=== PATIENT | male | born 1970 | race Two or more races ===

== ENCOUNTER 2016-08-05 07:45 | Inpatient (IN) | payer OTHER ==
[~2016-08-05] VITALS: Ht 167.6 cm; Wt 95.6 kg
[~2016-08-05 07:45] MED LIST: BACITRACIN 50,000 UNIT ONE; BUPIVACAINE/PF-EPI 0.5% 1:200K ONE; THROMBIN 20,000 UNIT VIAL TP ONE
[2016-08-05 08:44] VITALS: BP 145/95
[2016-08-05] MEDS ORDERED: LACTATED RINGERS 1,000 ML IV SCH (08:56)
[2016-08-05] MEDS ORDERED: FENTANYL PF 250 MCG/5ML ONE (09:20)
[2016-08-05] MEDS ORDERED: MIDAZOLAM 1 MG/ML, 2ML ONE (09:20)
[2016-08-05] MEDS ORDERED: ONDANSETRON 2MG/ML, 2ML ONE (10:24)
[2016-08-05] MEDS ORDERED: DEXAMETHASONE 4 MG/ML, 1ML ONE (10:24)
[2016-08-05] MEDS ORDERED: CEFAZOLIN 1,000 MG ONE (10:24)
[2016-08-05] MEDS ORDERED: PROPOFOL 10 MG/ML, 50ML ONE (10:24)
[2016-08-05] MEDS ORDERED: SUCCINYLCHOLINE 20 MG/ML, 10ML ONE (10:24)
[2016-08-05] MEDS ORDERED: PROPOFOL 10 MG/ML, 20ML ONE (10:24)
[2016-08-05] MEDS ORDERED: HYDROmorphone 1 MG/ML, 1ML IV PRN (11:00)
[2016-08-05] MEDS ORDERED: LABETALOL 5MG/ML, 20ML IV PRN (11:00)
[2016-08-05] MEDS ORDERED: ONDANSETRON 2MG/ML, 2ML IVPush PRN (11:00)
[2016-08-05] MEDS ORDERED: ALBUTEROL/IPRATROPIUM 2.5MG/0.5MG, 3 ML NPPB PRN (11:00)
[2016-08-05] MEDS ORDERED: PROMETHAZINE 25 MG/ML, 1ML IV PRN (11:00)
[2016-08-05] MEDS ORDERED: ACETAMINOPHEN 325 MG TABLET PO PRN (11:00)
[2016-08-05] MEDS ORDERED: MIDAZOLAM 1 MG/ML, 2ML IV PRN (11:00)
[2016-08-05] MEDS ORDERED: FENTANYL PF 100 MCG/2ML IV PRN (11:00)
[2016-08-05] MEDS ORDERED: MEPERIDINE/PF 25MG/0.5ML IVPush PRN (11:00)
[2016-08-05] MEDS ORDERED: hydrALAzine 20 MG/ML, 1ML IV PRN (11:00)
[2016-08-05] MEDS ORDERED: OXYcodone 5 MG/5 ML ORAL.SOL UDC PO PRN (11:00)
[2016-08-05] MEDS ORDERED: HYDROmorphone 1 MG/ML, 1ML ONE ×2 (11:38→12:28)
[2016-08-05] MEDS ORDERED: OXYcodone 5 MG/5 ML ORAL.SOL UDC ONE (12:16)
[2016-08-05] MEDS ORDERED: ACETAMINOPHEN 650 MG/20.3 ML UDC ONE (12:16)
[2016-08-05] MEDS ORDERED: morphine SULFATE 10 MG/ML, 1ML IV PRN (15:00)
[2016-08-05] MEDS ORDERED: METHOCARBAMOL 1,000 MG in DEXTROSE 5% 100 ML IV ONE (15:00)
[2016-08-05] MEDS ORDERED: NS + 20MEQ KCL 1,000 ML IV SCH (15:00)
[2016-08-05] MEDS ORDERED: MAGNESIUM HYDROXIDE 8%, 30ML UDC PO PRN (15:00)
[2016-08-05] MEDS: ONDANSETRON 2MG/ML, 2ML IV PRN (15:37)
[2016-08-05] MEDS: DEXAMETHASONE 4 MG/ML, 1ML IV SCH ×3 (17:05→23:22)
[2016-08-05] MEDS: GABAPENTIN 300 MG CAPSULE PO SCH ×2 (17:05→20:30)
[2016-08-05] MEDS: CEFAZOLIN PMX 1GM/50ML 50 ML IVPB SCH (18:27)
[2016-08-05 18:32] VITALS: BP 128/62
[2016-08-05] MEDS: OXYcodone/APAP 5/325MG TABLET PO PRN (23:21)
[2016-08-05] MEDS: METHOCARBAMOL 750 MG in DEXTROSE 5% 100 ML IV SCH (23:21)
[2016-08-06 01:51] VITALS: BP 110/71
[2016-08-06] MEDS: CEFAZOLIN PMX 1GM/50ML 50 ML IVPB SCH (01:59)
[2016-08-06] MEDS: ONDANSETRON 2MG/ML, 2ML IV PRN (03:01)
[2016-08-06] MEDS: DEXAMETHASONE 4 MG/ML, 1ML IV SCH ×2 (03:02→08:16)
[2016-08-06 08:00] VITALS: BP 152/92
[2016-08-06] MEDS: METHOCARBAMOL 750 MG in DEXTROSE 5% 100 ML IV SCH (08:16)
[2016-08-06] MEDS: GABAPENTIN 300 MG CAPSULE PO SCH (08:16)
[2016-08-06] MEDS ORDERED: SENNA/DOCUSATE TABLET PO SCH (09:00)
[2016-08-06] MEDS ORDERED: NS + 20MEQ KCL 1,000 ML IV SCH (09:30)
[2016-08-06] MEDS: OXYcodone/APAP 5/325MG TABLET PO PRN (13:19)
[2016-08-06] MEDS ORDERED: OXYC1TAB7 PO (13:40)
[2016-08-06 13:41] VITALS: BP 148/78
[2016-08-06] MEDS ORDERED: METH750T87 PO (13:42)
[2016-08-06] MEDS ORDERED: SENN1TAB27 PO (13:44)
[2016-08-06] MEDS ORDERED: DEXAMETHASONE 4 MG/ML, 1ML IV SCH (14:00)
[2016-08-08] MEDS ORDERED: METHOCARBAMOL 750 MG TABLET PO SCH (06:00)
== END 2016-08-06 14:40 | disposition home or self-care (01) | DRG 517 ==
LOC: ORIP 07:45 → 4NOR 13:30
PROVIDERS: ADMIT Neurological Surgery; ATTEND Neurological Surgery
PROC: 4A11X4G Monitoring of Peripheral Nervous Electrical Activity, Intraoperative, External Approach (ICD-10-PCS; 2016-08-05)
PROC: 01NB0ZZ Release Lumbar Nerve, Open Approach (ICD-10-PCS; principal; 2016-08-05 09:30)
DX: M48.06 Spinal stenosis, lumbar region (principal)
CPT/HCPCS: 76000; J0690; J1100; J1170; J2250; J2405; J2704; J3010; J3480; J0330; J2800